=== PATIENT | male | born 1945 | race Caucasian/White ===

== ENCOUNTER 2018-01-09 09:55 | Emergency (ER) | payer OTHER ==
--- NOTE | 2018-01-09 10:27 | EDPHY ---
H & P Stated Complaint: Feeling off balance since yesterday Time Seen by Provider: 01/09/18 10:13 HPI/ROS: CHIEF COMPLAINT: Concern for TA HISTORY OF PRESENT ILLNESS: The patient is a 72-year-old man who states that he was sitting at his computer yesterday at 5:00 p.m. When he had a sudden episode where the World seemed to tilt at a 45 degree angle. He started to fall out of his chair and caught himself on the desk. His symptoms persisted for about 30 sec and then began to resolve gradually. He does however state that he still feels slightly lightheaded. He initially described this as "tipsy ". He does not have difficulty walking. No nausea vomiting. He did not necessarily feel like he was spinning. He denies chest pain shortness of breath or palpitations. He does have a history of Meniere's disease 1 year ago the presented with intense vertigo after waking from sleep as well as hearing loss and a feeling of fullness. That his he states that this seems different than that. He got worked up for that at [facility] and had a MRI that showed previous strokes. No recent fevers. No trauma. He also has a history of CLL Severity: Severe Modifying factors: Resolved spontaneously REVIEW OF SYSTEMS: Constitutional: denies: chills, fever, recent illness, recent injury EENTM: denies: blurred vision, double vision, nose congestion Respiratory: denies: cough, shortness of breath Cardiac: denies: chest pain, irregular heart rate, lightheadedness, palpitations Gastrointestinal/Abdominal: denies: abdominal pain, diarrhea, nausea, vomiting, blood streaked stools Genitourinary: denies: dysuria, frequency, hematuria, pain Musculoskeletal: denies: joint pain, muscle pain Skin: denies: lesions, rash, jaundice, bruising Neurological: See HPI Hematologic/Lymphatic: denies: blood clots, easy bleeding, easy bruising Immunologic/allergic: denies: HIV/AIDS, transplant 10 systems reviewed and negative except as noted - Physical Exam General Appearance: WD/WN, mild distress Eyes, Ears, Nose, Throat Exam: PERRL/EOMI, normal ENT inspection, pharynx normal Neck: non-tender, full range of motion, supple, normal inspection. No: stiff neck, tender lateral Cardiovascular/Chest: normal peripheral pulses, regular rate, rhythm Respiratory: chest non-tender, lungs clear, normal breath sounds. No: crackles , rhonchi Gastrointestinal/Abdominal: normal bowel sounds, non tender, soft Back Exam: normal inspection Extremity: normal range of motion, non-tender, normal inspection Mental Status: alert, oriented x 3 CN's Exam: normal hearing, normal speech, PERRL, normal eye position, normal gag reflex, normal pupil position, normal speech. No: facial asymmetry, facial droop, facial paresthesias, gaze palsy, tongue deviation to R, tongue deviation to L Coordination/Gait: normal finger to nose, normal gait able to balance on each foot individually. negative Romberg Motor/Sensory: normal. No: motor deficit, sensory deficit, pronator drift (R), pronator drift (L), weak motor strength RUE, weak motor strength LUE, weak motor strength RLE, weak motor strength LLE DTR: tricep (R): 2+, tricep (L): 2+, knee (R): 2+, knee (L): 2+ Skin Exam: warm/dry, normal color Lymphatic: no adenopathy Source: Patient Exam Limitations: No limitations - Personal History Current Tetanus/Diphtheria Vaccine: Unsure Current Tetanus Diphtheria and Acellular Pertussis (TDAP): Unsure - Medical/Surgical History Hx Asthma: No Hx Chronic Respiratory Disease: No Hx Diabetes: No Hx Cardiac Disease: No Hx Renal Disease: No Hx Cirrhosis: No Hx Alcoholism: No Hx HIV/AIDS: No Hx Splenectomy or Spleen Trauma: No Other PMH: HTN, prostatic hypertrophy previous stroke, self caths, history of meniers - Family History Significant Family History: No pertinent family hx - Social History Smoking Status: Never smoked Alcohol Use: Sober Drug Use: None Constitutional: Initial Vital Signs Temperature (C) 36.4 C 01/09/18 09:56 Heart Rate 69 01/09/18 09:56 Respiratory Rate 16 01/09/18 09:56 Blood Pressure 183/92 H 01/09/18 09:56 O2 Sat (%) 94 01/09/18 09:56 O2 Delivery Mode Room Air Allergies/Adverse Reactions: No Known Allergies Allergy (Unverified 10/16/09 10:41) Home Medications: Medication Instructions Recorded GLUCOSAMINE/CHONDROITIN 2,000 mg PO DAILY 07/04/10 LOSARTAN-HCTZ 100-25 MG TAB 11/19/09 Atorvastatin Calcium 01/09/18 Clopidogrel 01/09/18 Medical Decision Making - Diagnostics EKG Interpretation: An EKG obtained and was read and documented in trace view. Please see trace view for full reading and report. Sinus rhythm, Pac, no acute ischemic changes Imaging: Discussed imaging studies w/ accounts receivable accountant Radiologist ED Course/Re-evaluation: 12:15 p.m. the patient's symptoms have completely resolved. We discussed his MRI and test results. He feels reassured. I suspect that this is more primarily a middle ear issue because of the timing. It was brief only 30 sec and then with slight echoing type symptoms over the next 24 hr. It is certainly possible that this was a TIA. His NIH stroke score 0. He is already on clopidogrel. I encouraged him to continue this and he will follow up with Neurology as well as ENT. Differential Diagnosis: Partial list of the Differential diagnosis considered include but were not limited to; benign positional vertigo, Meniere's, TIA and although unlikely based on the history and physical exam, I also considered CVA, dissection, aneurysm, tumor. I discussed these differential diagnoses and the plan with the patient as well as the usual and expected course. The patient understands that the diagnosis is provisional and that in medicine we are not always correct and that further workup is often warranted. Usual and customary warnings were given. All of the patient's questions were answered. The patient was instructed to return to the emergency department should the symptoms at all worsen or return, otherwise to followup with the physician as we discussed. - Data Points Laboratory Results: Laboratory Results 01/09/18 10:50 01/09/18 10:50 Point of Care Test Results: Chemistry 01/09/18 10:55 POC Troponin I 0.01 ng/mL ng/mL (0.00-0.08) Departure - Departure Disposition: Home, Routine, Self-Care Clinical Impression: Vertigo Condition: Fair Instructions: Vertigo (ED) Referrals: Cody Heaton MD [Primary Care Provider] - As per Instructions Michael Lenz MD [Medical Doctor] - 5-7 days, call for appt. Melyssa Dhaliwal MD [Medical Doctor] - 2-3 days without fail
--- NOTE | 2018-01-09 10:40 | CPEKG ---
Test Reason : OPEN Blood Pressure : / mmHG Vent. Rate : 056 BPM Atrial Rate : 055 BPM P-R Int : 163 ms QRS Dur : 088 ms QT Int : 409 ms P-R-T Axes : 054 046 001 degrees QTc Int : 395 ms Sinus rhythm Atrial premature complexes Confirmed by Armand Palmer ([id number]) on 01/09/2018 10:39:54 AM Referred By: Confirmed By:Armand Palmer
[2018-01-09 11:01] LABS: PLATELET COUNT 227 10^3/uL (150-400)
[2018-01-09 11:22] LABS: INR 1.01 (0.83-1.16); PROTIME(PATIENT) 13.5 SEC (12.0-15.0)
[2018-01-09 12:18] VITALS: BP 156/104
== END 2018-01-09 12:37 | disposition home or self-care (01) ==
DX: R42 Dizziness and giddiness (principal); I10 Essential (primary) hypertension
CPT/HCPCS: 84484-PO

== ENCOUNTER → 2018-05-22 | Outpatient (CLI) | payer OTHER | LOC: FIMAGING 09:16 | PROVIDERS: ATTEND Urology | DX: N40.0 Benign prostatic hyperplasia without lower urinary tract symptoms (principal); R33.9 Retention of urine, unspecified ==